=== PATIENT | female | born 1950 | race Caucasian/White ===

== ENCOUNTER 2017-12-23 12:59 | Day surgery (SDC) | payer MEDICARE, OTHER ==
[~2017-12-23] VITALS: Ht 160 cm; Wt 98.6 kg
[~2017-12-23 12:59] MED LIST: ASPI81CH PO; ASPI81EC PO; ATOR20 PO; BENA20 PO; CALCIUM PO; CYAN1000 PO; FAMO20 PO; FIBER THERAPY PO; FISH OIL 1200 PO; FLUC200 PO; GABA400 PO; GLUCHON PO; HYDR1TAB94 PO; LAVAP17G PO; MULVITMINF PO; SULTRIDS PO; TOCO1000 PO; TRAM50 PO; VITB100 PO; [UNRECOGNIZED DRUG - CODE] PO
== END 2017-12-23 16:10 | disposition home or self-care (01) ==
LOC: ORSCSDS 12:59
PROVIDERS: Internal Medicine Gastroenterology
PROC: 0DBM8ZX Excision of Descending Colon, Via Natural or Artificial Opening Endoscopic, Diagnostic (ICD-10-PCS; principal; 2017-12-23 15:00)
PROC: 3E0H8GC Introduction of Other Therapeutic Substance into Lower GI, Via Natural or Artificial Opening Endoscopic (ICD-10-PCS; principal; 2017-12-23 15:00)
DX: R10.32 Left lower quadrant pain (principal); Z86.010 Personal history of colon polyps; K57.30 Diverticulosis of large intestine without perforation or abscess without bleeding; E11.9 Type 2 diabetes mellitus without complications; K76.0 Fatty (change of) liver, not elsewhere classified; E66.01 Morbid (severe) obesity due to excess calories; Z68.39 Body mass index [BMI] 39.0-39.9, adult; Z79.82 Long term (current) use of aspirin; Z87.891 Personal history of nicotine dependence; Z79.899 Other long term (current) drug therapy
CPT/HCPCS: 88305; J1980

== ENCOUNTER → 2019-03-10 | Outpatient (CLI) | payer MEDICARE, OTHER ==
[2019-03-12 15:06] LABS: HPV 16 Negative (Negative); HPV 18 Negative (Negative); HPV OTHER HR TYPES Negative (Negative)
== END | disposition home or self-care (01) ==
LOC: LAB SHORT 17:32 → LAB 17:32
PROVIDERS: Nurse Practitioner Women's Health
DX: Z12.72 Encounter for screening for malignant neoplasm of vagina (principal)
CPT/HCPCS: 87624; G0123

== ENCOUNTER 2019-03-19 10:03 | Inpatient (IN) | payer MEDICARE, OTHER ==
[~2019-03-19] VITALS: Ht 157.5 cm; Wt 101.7 kg
[~2019-03-19 10:03] MED LIST changes: -ASPI81CH PO; +Aspirin EC81 MG PO
[2019-03-19 10:55] LABS: BASOPHILS ABSOLUTE AUTO 0.04 K/mm3 (0.00-0.23); BASOPHILS PERCENT AUTO 0 % (0-2); EOSINOPHILS PERCENT AUTO 0 % (0-6); IMMATURE GRAN ABSOLUTE AUTO 0.09 K/mm3 (0.00-0.10); IMMATURE GRAN PERCENT AUTO 0 % (0-1); LYMPHOCYTES ABSOLUTE AUTO 0.63 K/mm3 (0.84-5.20); LYMPHOCYTES PERCENT AUTO 3 % (21-46); MONOCYTES ABSOLUTE AUTO 1.02 K/mm3 (0.16-1.47); MONOCYTES PERCENT AUTO 5 % (4-13); Mean Corpuscular HGB 31.8 pg (26.0-34.0); Mean Corpuscular Volume 94 fL (80-100); Mean Platelet Volume 9.2 fL (9.1-12.4); NEUTROPHILS ABSOLUTE AUTO 18.75 K/mm3 (1.96-9.15); NEUTROPHILS PERCENT AUTO 91 % (41-73); Platelet Count 349 K/mm3 (150-400); RDW Standard Deviation 44.3 fL (35.1-46.3); Red Blood Cell Count 5.35 M/mm3 (3.80-5.20); White Blood Cell Count 20.53 K/mm3 (4.00-11.30)
[2019-03-19 11:17] LABS: Alanine Aminotransfer (ALT/SGP 48 U/L (12-78); Albumin, Blood 3.9 g/dL (3.4-5.0); Alk Phos 70 U/L (50-136); Anion Gap 8 mmol/L (6-16); Aspartate Aminotrans (AST/SGOT 30 U/L (12-37); Bilirubin, Total 0.8 mg/dL (0.1-1.0); Blood Urea Nitrogen 20 mg/dL (8-24); Bun/Creatinine Ratio 24.2 (12.0-20.0); CO2, Blood 28 mmol/L (21-32); Calcium, Blood 10.2 mg/dL (8.5-10.1); Chloride, Blood 100 mmol/L (98-108); Creatinine, Blood 0.83 mg/dL (0.40-1.00); Globulin, Blood 3.9 g/dL (2.2-4.0); Glomerular Filtration Rate >60 (60-); Glucose, Blood 188 mg/dL (70-99); Potassium, Blood 3.9 mmol/L (3.5-5.5); Sodium, Blood 136 mmol/L (136-145); Total Protein, Blood 7.8 g/dL (6.4-8.2)
[2019-03-19] MEDS ORDERED: Lotensin Hct 21 EACH PO (14:38)
--- NOTE | 2019-03-19 15:34 | NUR ---
History, Chart, Medications and Allergies reviewed before start of procedure.Patient confirms NPO status and agrees with scheduled surgery. Surgical site prepped with 2% Chlorhexidine cloth wipe.
--- NOTE | 2019-03-19 17:16 | NUR ---
03/19/19 1716 Denys Duron 1705 ASSUMED CARE OF PATIENT. COUNT DONE.
[2019-03-19 17:39] LABS: PCO2 Arterial 41.1 mmHg (35-45); PO2 Arterial 119 mmHg (80-100); pH Blood Arterial 7.39 (7.35-7.45)
--- NOTE | 2019-03-19 20:05 | NUR ---
pt transferred to unit via stretcher, a/0 x 4, pleasant/cooperative, somewhat drowsy. pt denies n/v, states pain at 3/10. post vs commenced and stable
[2019-03-19] MEDS ORDERED: PROBIOTIC1 EAC1 PO (22:28)
[2019-03-19] MEDS ORDERED: OSTERA TABLET1 EACH PO (22:28)
[2019-03-20 04:58] LABS: BASOPHILS ABSOLUTE AUTO 0.03 K/mm3 (0.00-0.23); BASOPHILS PERCENT AUTO 0 % (0-2); EOSINOPHILS PERCENT AUTO 0 % (0-6); Hematocrit 42.1 % (33.0-51.0); IMMATURE GRAN ABSOLUTE AUTO 0.05 K/mm3 (0.00-0.10); IMMATURE GRAN PERCENT AUTO 0 % (0-1); LYMPHOCYTES ABSOLUTE AUTO 1.11 K/mm3 (0.84-5.20); LYMPHOCYTES PERCENT AUTO 6 % (21-46); MONOCYTES ABSOLUTE AUTO 1.38 K/mm3 (0.16-1.47); MONOCYTES PERCENT AUTO 8 % (4-13); Mean Corpuscular HGB 31.8 pg (26.0-34.0); Mean Corpuscular HGB Conc 33.3 g/dL (31.5-36.5); Mean Corpuscular Volume 96 fL (80-100); Mean Platelet Volume 9.5 fL (9.1-12.4); NEUTROPHILS ABSOLUTE AUTO 15.42 K/mm3 (1.96-9.15); NEUTROPHILS PERCENT AUTO 86 % (41-73); Platelet Count 288 K/mm3 (150-400); RDW Coefficient Variation 13.3 % (11.7-14.2); RDW Standard Deviation 47.4 fL (35.1-46.3); White Blood Cell Count 17.99 K/mm3 (4.00-11.30)
--- NOTE | 2019-03-20 05:16 | NUR ---
shift summary: vss, no acute changes. pt has a hx of htn at baseline. held antihypertensives at 2100 med times r/t bp at 99/54, asymptomatic. continued fluids and rechecked vs at appropriate times and spot checked bp x 1. at 0500 bp 101/56, asymptomatic. pt reports pain controlled "very well" per mar, no n/v, hypoactive bowel tones, prevena dressing remained intact and sealed, abdomen soft, mildly tender over operative site. palm catheter remained patent and draining dark tea colored urine at 300 ml, continued IV fluids and encouraged PO intake. pt tolerated clear liquid diet and PO medications
[2019-03-20 05:18] LABS: Bun/Creatinine Ratio 22.8 (12.0-20.0); Calcium, Blood 8.6 mg/dL (8.5-10.1); Creatinine, Blood 1.14 mg/dL (0.40-1.00); Potassium, Blood 4.2 mmol/L (3.5-5.5)
--- NOTE | 2019-03-20 18:53 | NUR ---
SHIFT SUMMARY PT A&OX4, VSS, POD1 HEMICOLECTOMY/INCARCERATED HERNIA. PAIN MANAGED WITH TYLENOL AND TORADOL. RAO PO, FULL LIQUID DIET, DENIES N&V. AMB TO BRP, UP TO CHAIR T/O SHIFT. LOPEZ PATENT & DRAINING YELLOW URINE, DC IN AM. PT'S ON MEDICAL FLOOR, TONS OF FAMILY AND FRIENDS VISITING TODAY, PUSHED PT IN WC TO VISIT WITH . WCTM & TX PER EMAR UNTIL REPORT GIVEN TO ONCOMING FRANCO BECK.
--- NOTE | 2019-03-21 06:32 | NUR ---
SUMMARY NO ACUTE CHANGES THROUGH THE NIGHT. PT HAS SLEPT WITH NO PROBLEMS. NO COMPLAINTS OF PAIN. PROVENA WOUND VAC REMAINS INPLACE, SUCTION INTACT. 1 ASSIST. TOLERATING PO INTAKE. JESSICA REMOVED THIS AM WNL. BOWEL TONES ACTIVE X4, PT UNABLE TO PASS FLATUS. DENIES NAUSEA. AMBULATION ENC. CALL LIGHT IN REACH IN REACH. TM
--- NOTE | 2019-03-21 17:56 | NUR ---
SHIFT SUMMARY PAIN HAS BEEN MANAGED WITH TYLENOL THIS SHIFT. PT HAS BEEN INDEPENDENT IN THE ROOM. PT IS PASSING FLATUS AND STOOL. VOIDING WELL. TOLERATING REGULAR DIET. VSS. WILL MONITOR UNTIL REPORT TO ONCOMING RN.
--- NOTE | 2019-03-22 06:32 | NUR ---
SHIFT SUMMARY RESTED WELL, ABLE TO AMBULATE TO BATHROOM WITH STANDBY ASSIST. MIDLINE PREVENA IS PATENT, AND FLAT AGAINAST ABDOMEN. DENEIS PAIN OR DISCOMFORT AT THIS TIME. TOLERATING IV ABX WITH EASE. DENEIS FURTHER NEEDS AT THIS TIME. SAFETY MEASURES IN PLACE. WILL CONTINUE TO MONITOR.
--- NOTE | 2019-03-22 13:47 | NUR ---
DISCHARGE PT PROVIDED WITH WRITTEN AND VERBAL DISCHARGE INSTRUCTIONS. SHE REPORTED UNDERSTANDING AFTER QUESTIONS WERE ANSWERED. PT ASSISTED OUT IN W/C BY RUDDY THACKER.
== END 2019-03-22 12:01 | disposition home or self-care (01) | DRG 329 ==
LOC: ER 10:03 → SURS 14:23
PROVIDERS: Emergency Medicine; ADMIT Surgery
PROC: 0WQF4ZZ Repair Abdominal Wall, Percutaneous Endoscopic Approach (ICD-10-PCS; principal; 2019-03-19 15:45)
PROC: 0DTF4ZZ Resection of Right Large Intestine, Percutaneous Endoscopic Approach (ICD-10-PCS; 2019-03-19 15:45)
DX: K43.0 Incisional hernia with obstruction, without gangrene (principal); K55.049 Acute infarction of large intestine, extent unspecified; I10 Essential (primary) hypertension; E11.9 Type 2 diabetes mellitus without complications
CPT/HCPCS: 36415; 74177; 80048; 80053; 82803; 83690; 85025; 88307; 93005; 93010; 96361-59; 96374-59; 96375-59; 99285-25; A9270; J0330; J1100; J1170; J1650; J1885; J1956; J2405; J2543; J2704; J2710; J3010; J7050; J7120

== ENCOUNTER → 2021-05-18 | Outpatient (CLI) | payer MEDICARE, OTHER ==
[~2021-05-18] MED LIST changes: +Lotensin Hct 21 EACH PO; +OSTERA TABLET1 EACH PO; +PROBIOTIC1 EAC1 PO
== END | disposition home or self-care (01) ==
LOC: LAB EV 17:38 → LAB SHORT 17:38
DX: N39.0 Urinary tract infection, site not specified (principal)
CPT/HCPCS: 87077; 87086; 87186

== ENCOUNTER → 2022-03-14 | Outpatient (CLI) | payer MEDICARE, OTHER | END | disposition home or self-care (01) | LOC: LAB 11:14 → LAB SHORT 11:14 | DX: N39.0 Urinary tract infection, site not specified (principal) | CPT/HCPCS: 87077; 87086; 87186 ==

== ENCOUNTER → 2022-08-18 | Outpatient (CLI) | payer MEDICARE, OTHER | LOC: LAB SHORT 11:05 → LAB 11:05 | DX: N39.0 Urinary tract infection, site not specified (principal) | CPT/HCPCS: 87086 ==

== ENCOUNTER → 2023-01-12 | Outpatient (CLI) | payer MEDICARE, OTHER | END | disposition home or self-care (01) | LOC: LAB 16:40 → LAB SHORT 16:40 | DX: N39.0 Urinary tract infection, site not specified (principal) | CPT/HCPCS: 87077; 87086; 87186 ==